=== PATIENT | male | born 1990 | race African-American/Black ===

== ENCOUNTER 2017-11-01 14:43 | Emergency (ER) | payer OTHER ==
[~2017-11-01] VITALS: Ht 177.8 cm; Wt 108.9 kg
[2017-11-01] MEDS ORDERED: LIORESAL 10 MG10 MG PO (15:48)
[2017-11-01] MEDS ORDERED: MEDROLDOSEPACK PO (15:48)
[2017-11-01] MEDS ORDERED: MOBIC15 MG PO (15:48)
[2017-11-01 16:06] VITALS: BP 132/81
== END 2017-11-01 16:05 | disposition home or self-care (01) ==
LOC: ER 14:43
DX: S63.502A Unspecified sprain of left wrist, initial encounter (principal); M54.9 Dorsalgia, unspecified; W01.0XXA Fall on same level from slipping, tripping and stumbling without subsequent striking against object, initial encounter; Y93.89 Activity, other specified; Y92.89 Other specified places as the place of occurrence of the external cause; Y99.8 Other external cause status